=== PATIENT | female | born 1955 | race Caucasian/White ===

== ENCOUNTER 2024-03-15 17:50 | Emergency (ER) | payer MEDICARE, OTHER, SELFPAY ==
[2024-03-15] VITALS (10 sets, daily range): BP systolic 130–184; BP diastolic 64–79; PULSE 79–91; RESP 16–28; TEMP 36.6–37.1; O2SAT 92–98; BMI 28.5
--- NOTE | 2024-03-15 18:38 | EKG_ITS ---
[place] [id number] [place] [id number] Test Date: 2024-03-15 Pat Name: Laurence Perrin Department: [facility] Room: Gender: Female Data Security Administrator: SHERRY : 1955 Requested By: Order Number: [id number] Reading MD: Galen Hwang Measurements Intervals [place] Rate: 82 P: 43 PA: 162 QRS: -21 QRSD: 78 T: 34 QT: 374 QTc: 436 Interpretive Statements Normal sinus rhythm Inferior infarct , age undetermined Electronically Signed On 03-16-2024 8:32:52 PDT by Galen Hwang
[2024-03-15 21:12] LABS: Add Manual Diff / Slide Review NO; Basophils Absolute Auto 0 /uL (0-100); Basophils Percent Auto 0.3 % (0-2); Eosinophils Absolute Auto 100 /uL (0-450); Hemoglobin 14.1 g/dL (12.0-16.0); Lymphocytes Absolute Auto 1200 /uL (1100-4500); Lymphocytes Percent Auto 10.1 % (25-40); Mean Corpuscular HGB Conc 32.8 % (30-36); Mean Corpuscular Hemoglobin 27.4 PG (26-34); Mean Corpuscular Volume 83.5 fL (80-100); Monocytes Absolute Auto 1000 /uL (0-900); Monocytes Percent Auto 8.3 % (3-14); Neutrophils Absolute Auto 9500 /uL (1500-7000); Neutrophils Percent Auto 80.3 % (50-75); Platelet Count 253 X10^3/uL (150-400); Red Blood Cell Count 5.16 X10^6/uL (4.0-5.2); Red Cell Distribution Width 13.7 % (11.6-14.8); White Blood Cell Count 11.8 X10^3/uL (4.5-11.0)
[2024-03-15 21:28] LABS: Alanine Aminotransferase 20 IU/L (<35); Albumin 4.7 g/dL (3.5-5.0); Albumin Globulin Ratio 1.2 (1.0-2.8); Alkaline Phosphatase 50 U/L (38-126); Aspartate Aminotransferase 27 IU/L (14-36); Bilirubin Total 0.9 mg/dL (0.2-1.3); Blood Urea Nitrogen 13 mg/dL (7-17); Calcium 9.3 mg/dL (8.4-10.2); Carbon Dioxide 24 mmol/L (22-32); Chloride 100 mmol/L (98-107); Estimated Glomerular Filt Rate > 60 mL/min (>60); Globulin 3.9 g/dL (1.7-4.1); Glucose 120 mg/dL (80-110); HEMOLYSIS 21 (0-50); Lipase 82 U/L (23-300); Potassium 3.9 mmol/L (3.4-5.1); Sodium 135 mmol/L (137-145); Total Protein 8.6 g/dL (6.3-8.2)
--- NOTE | 2024-03-15 21:36 | ED.ABDPAIN ---
HPI - Abdominal Pain General Chief Complaint: Abdominal Pain Stated Complaint: lower abd pain, sent by [facility] Time Seen by Provider: 03/15/24 20:54 History of Present Illness HPI narrative: 68-year-old female with history of diverticulitis 1st diagnosed 5 years ago, two prior bouts, now with 7 days duration of waxing-waning left lower quadrant abdominal pain that feels somewhat similar. No dysuria or frequency of urination, no blood in urine. No history of known kidney stones. No flank area discomfort. No fevers or chills. No black or red stools. She recalls having allergy to ciprofloxacin, and got better on Keflex dose her last episode, does not recall any penicillin allergies. She denies chest pain shortness of breath. She denies headache, neck pain, photophobia symptoms. She has currently not taking any oral antibiotics. Related Data Previous Rx's Medication Instructions Recorded amoxicillin 875 mg-potassium 1 tab PO BID #20 tabs 03/15/24 clavulanate 125 mg tablet Allergies Allergy/AdvReac Type Severity Reaction Status Date / Time ciprofloxacin AdvReac Mild Rash Verified 03/15/24 17:19 Review of Systems Review of Systems Narrative: See HPI Patient History Social History Smoking Status: Never smoker Smoking Status: Never smoker alcohol intake frequency: holidays/special occasions only Substance Use Type: does not use Exam Narrative Exam Narrative: GENERAL: Well-developed patient, in mild distress. HEAD: Atraumatic. Normocephalic. EYES: Pupils equal round and reactive. Extraocular motions intact. No scleral icterus. No injection or drainage. ENT: Nose without bleeding, purulent drainage. Throat without erythema, tonsillar hypertrophy or exudate. Airway patent. NECK: Trachea midline. Non tender CARDIOVASCULAR: Regular rate and rhythm without murmurs, gallops, or rubs. RESPIRATORY: Clear to auscultation. Breath sounds equal bilaterally. No wheezes, rales, or rhonchi. GASTROINTESTINAL: Abdomen soft, non-tender, nondistended. EXTREMITIES: No edema or joint tenderness. BACK: Nontender without deformity or crepitance. No flank tenderness. NEURO: AOx3. Motor functions grossly nonfocal SKIN: No rash or erythema of visible areas Initial Vital Signs Initial Vital Signs: Vital Signs Temperature 98 F 03/15/24 18:31 Pulse Rate 79 03/15/24 18:31 Respiratory Rate 17 03/15/24 18:31 Blood Pressure 130/79 03/15/24 18:31 Pulse Oximetry 98 03/15/24 18:31 Oxygen Delivery Method Room Air 03/15/24 18:31 Course Orders Ordered: ED Orders 03/15/24 18:38 EKG-12 Lead Stat 03/15/24 20:45 Complete Blood Count AUTO DIFF Stat Comprehensive Metabolic Panel Stat Lipase Stat 03/15/24 21:48 CT abdomen pelvis w con Stat Discontinued Medications Amoxicillin/Clavulanate Potassium (Amoxicillin/Clav 875/125 Mg) 1 tab PO NOW ONE Stop: 03/15/24 23:40 Last Admin: 03/15/24 23:48 Dose: 1 tab Documented By: ANÍBAL Sodium Chloride (Normal Saline 0.9%) 1,000 mls @ 500 mls/hr IV BOLUS ONE Stop: 03/15/24 23:48 Last Infusion: 03/15/24 23:58 Dose: Infused Documented By: Admin: 03/15/24 22:08 Dose: 500 mls/hr Documented By: ANÍBAL Piperacillin Sod/Tazobactam (Sod 4.5 gm/ Sodium Chloride) 100 mls @ 200 mls/hr IV NOW ONE Stop: 03/15/24 23:39 Last Admin: 03/15/24 23:43 Dose: Not Given Documented By: ANÍBAL Ondansetron HCl (Ondansetron 4 Mg/2 Ml Inj) 4 mg IV NOW PRN PRN Reason: Nausea And Vomiting Ondansetron HCl (Ondansetron 4 Mg Odt) 4 mg PO NOW PRN PRN Reason: Nausea And Vomiting Vital Signs Vital signs: Vital Signs - 8 hr 03/15/24 18:31 03/15/24 21:16 03/15/24 21:33 Temperature 98 F Pulse Rate 79 82 80 Respiratory Rate 17 21 Blood Pressure 130/79 Pulse Oximetry 98 98 92 Oxygen Delivery Method Room Air 03/15/24 21:34 03/15/24 21:34 03/15/24 22:06 Temperature Pulse Rate 80 91 H Respiratory Rate 16 Blood Pressure 152/64 H Pulse Oximetry 97 98 Oxygen Delivery Method 03/15/24 22:13 03/15/24 22:13 03/15/24 22:30 Temperature 98.8 F Pulse Rate 83 Respiratory Rate 19 Blood Pressure 144/65 H 143/67 H Pulse Oximetry 98 Oxygen Delivery Method Room Air 03/15/24 22:30 03/15/24 23:00 03/15/24 23:00 Temperature Pulse Rate 82 79 Respiratory Rate 28 H Blood Pressure 137/64 Pulse Oximetry 98 98 Oxygen Delivery Method Room Air 03/15/24 23:30 03/15/24 23:31 03/15/24 23:31 Temperature Pulse Rate 89 87 Respiratory Rate 28 H 24 Blood Pressure 184/74 H Pulse Oximetry 97 96 Oxygen Delivery Method MDM - Abdominal Pain Lab Data Attestation: I reviewed the patient's lab results. Lab results narrative: White blood cell count 50225, hemoglobin 14. CMP unremarkable. 03/15/24 20:45 03/15/24 20:45 Labs: Lab Results 03/15/24 Range/Units 20:45 WBC 11.8 H (4.5-11.0) X10^3/uL RBC 5.16 (4.0-5.2) X10^6/uL Hgb 14.1 (12.0-16.0) g/dL Hct 43.0 (36-46) % MCV 83.5 (80-100) fL MCH 27.4 (26-34) PG MCHC 32.8 (30-36) % RDW 13.7 (11.6-14.8) % Plt Count 253 (150-400) X10^3/uL Neut % (Auto) 80.3 H (50-75) % Lymph % (Auto) 10.1 L (25-40) % [place] % (Auto) 8.3 (3-14) % Eos % (Auto) 1.0 L (2-4) % Baso % (Auto) 0.3 (0-2) % Neut # (Auto) 9500 H (8061-0161) /uL Lymph # (Auto) 1200 (0682-2821) /uL [place] # (Auto) 1000 H (0-900) /uL Eos # (Auto) 100 (0-450) /uL Baso # (Auto) 0 (0-100) /uL Sodium 135 L (137-145) mmol/L Potassium 3.9 (3.4-5.1) mmol/L Chloride 100 (98-107) mmol/L Carbon Dioxide 24 (22-32) mmol/L BUN 13 (7-17) mg/dL Creatinine 0.81 (0.52-1.04) mg/dL Estimated GFR > 60 (>60) mL/min BUN/Creatinine Ratio 16.0 (6-22) Glucose 120 H (80-110) mg/dL Calcium 9.3 (8.4-10.2) mg/dL Total Bilirubin 0.9 (0.2-1.3) mg/dL AST 27 (14-36) IU/L ALT 20 (<35) IU/L Alkaline Phosphatase 50 (38-126) U/L Total Protein 8.6 H (6.3-8.2) g/dL Albumin 4.7 (3.5-5.0) g/dL Globulin 3.9 (1.7-4.1) g/dL Albumin/Globulin Ratio 1.2 (1.0-2.8) Lipase 82 (23-300) U/L Point of care testing: Urine Dip Bedside Urine Glucose Negative Bedside Urine Bilirubin - Negative Bedside Urine Ketone ++ 40 Urine Specific [place] 1.025 Bedside Urine Occult Blood - Negative Bedside Urine pH 5.5 Bedside Urine Protein - Negative Bedside Urine Urobilinogen - Negative Bedside Urine Nitrite - Negative Bedside Urine Leukocytes - Negative Esterase Imaging Data CT scan - abdomen/pelvis: Radiologist's Impression: [place] [id number] CT Scan Report Signed Patient: Laurence Perrin MR#: [id number] : 1955 Acct:[id number] Age/Sex: 68 / F Date of Service: 03/15/24 Loc: ED Accession Number: [id number] Procedure: CT abdomen pelvis w con Ordering Provider: Vahe Sánchez MD PROCEDURE: CT ABDOMEN PELVIS W CON INDICATIONS: LLQ abd pain, hx diverticulitis TECHNIQUE: After the administration of intravenous contrast, axial sections acquired from the lung bases to the pubic symphysis. Coronal and sagittal reformats were performed. For radiation dose reduction, the following was used: automated exposure control, adjustment of mA and/or kV according to patient size. COMPARISON: None. FINDINGS: Image quality: Diagnostic. Lower Chest: 4 mm nodule is seen at the anterior left lower lobe (3/22). 3 mm nodule is seen in the right middle lobe anteriorly (3/12). Additional 4 mm nodule in the anterior right lower lobe (3/14). ABDOMEN: Liver: No solid mass. Gallbladder: No radiopaque gallstones or wall thickening. Biliary ducts: No biliary dilation. Pancreas: No ductal dilation. Spleen: Size is within normal limits. Adrenal Glands: No adrenal nodules. Kidneys and Ureters: No hydronephrosis. No solid mass. No complex renal cystic lesion which requires follow up. Stomach and Bowel: Moderate hiatal hernia. Multiple diverticula are seen in the sigmoid colon. There is bowel wall thickening and inflammatory fat stranding surrounding a diverticulum in the distal sigmoid colon. Edema is seen extending to the left adnexa. No pneumoperitoneum or well-defined fluid collection is seen. No signs of bowel obstruction. Normal appendix. Peritoneum: No abnormal intraperitoneal fluid. No free air. Ventral Wall: Small fat containing periumbilical hernia. Abdominal Nodes: No retroperitoneal or mesenteric adenopathy by size criteria. Vessels: Aorta and inferior vena cava are normal in size. PELVIS: Pelvic Organs: Retroverted uterus. Prominent vascularity is seen in the left adnexa, which can be seen in the setting of pelvic congestion syndrome. Bladder: No bladder wall thickening, accounting for underdistention. Pelvic Nodes: No enlarged lymph nodes. Miscellaneous: No inguinal hernias are seen. Bones: No aggressive osseous abnormality. IMPRESSION: 1. Acute sigmoid colon diverticulitis with prominent pericolonic edema but no clearly defined fluid collection or pneumoperitoneum. 2. Moderate hiatal hernia. 3. Small pulmonary nodules in the lung bases. Optional CT of the chest could be performed in 12 months if the patient is at a high risk for pulmonary malignancy. Approved by: Beny Perea M.D. on 03/15/2024 at 22:44 ECG Data Attestation: I personally reviewed and interpreted this ECG as follows: Interpretation: Normal sinus rhythm with rate of 82, no obvious ST segment elevation or depression changes. T-wave flattening lead 3, but upright in contiguous inferior leads 2 and AVF. SD 162, QRS 78, QTC 436. MDM Narrative Medical decision making narrative: 68-year-old female with history of diverticulitis, one-week duration waxing waning left lower quadrant abdominal pain. Afebrile, sirs screen negative. Some tenderness left lower quadrant. No guarding or rebound tenderness. Nondistended. Labs pending. Anticipate imaging, with IV contrast if GFR favorable. She declines pain medications when offered for now. Keep NPO. CT shows sigmoid diverticulitis, no description of perforation or abscess or obstruction. Patient not having bleeding symptoms. We will start antibiotics, consider IV although patient needs to apparently return her rental car, p.o. Augmentin dose now, prescription sent to her pharmacy at [place] we will she will be located tomorrow. Advised to take [id number] analgesics as needed. Recheck symptoms if abdominal pain is not improving in the next few days on oral antibiotics. Return precautions discussed. Discharge Plan Departure Patient Disposition: Home Clinical Impression: Diverticulitis Instructions: Diverticulitis Activity Restrictions/Additional Instructions: Left lower quadrant abdominal pain, history of diverticulitis, some tenderness on examination. CT scan does show sigmoid diverticulitis, at this time there was no description of any abscess or perforation, or any bowel obstruction. You are not having GI bleeding symptoms at this time. First dose of oral antibiotic Augmentin was given, prescription sent to your pharmacy for 10 day course. Recheck symptoms with the regular doctor in 2 or 3 days. Consider use of [id number] Tylenol and or Motrin for pain control as needed. Drink plenty of fluids. Return to this/nearest emergency department for any change worsening symptoms or any concerns prior Prescriptions: New amoxicillin-pot clavulanate 875-125 mg tablet 1 tab PO BID Qty: 20 0RF Referrals: Miscellaneous,DoctorMD [Primary Care Provider] - Stand Alone Forms: Patient Portal/API
--- NOTE | 2024-03-15 21:48 | DI.CT.S_ITS ---
PROCEDURE: CT ABDOMEN PELVIS W CON INDICATIONS: LLQ abd pain, hx diverticulitis TECHNIQUE: After the administration of intravenous contrast, axial sections acquired from the lung bases to the pubic symphysis. Coronal and sagittal reformats were performed. For radiation dose reduction, the following was used: automated exposure control, adjustment of mA and/or kV according to patient size. COMPARISON: None. FINDINGS: Image quality: Diagnostic. Lower Chest: 4 mm nodule is seen at the anterior left lower lobe (3/22). 3 mm nodule is seen in the right middle lobe anteriorly (3/12). Additional 4 mm nodule in the anterior right lower lobe (3/14). ABDOMEN: Liver: No solid mass. Gallbladder: No radiopaque gallstones or wall thickening. Biliary ducts: No biliary dilation. Pancreas: No ductal dilation. Spleen: Size is within normal limits. Adrenal Glands: No adrenal nodules. Kidneys and Ureters: No hydronephrosis. No solid mass. No complex renal cystic lesion which requires follow up. Stomach and Bowel: Moderate hiatal hernia. Multiple diverticula are seen in the sigmoid colon. There is bowel wall thickening and inflammatory fat stranding surrounding a diverticulum in the distal sigmoid colon. Edema is seen extending to the left adnexa. No pneumoperitoneum or well-defined fluid collection is seen. No signs of bowel obstruction. Normal appendix. Peritoneum: No abnormal intraperitoneal fluid. No free air. Ventral Wall: Small fat containing periumbilical hernia. Abdominal Nodes: No retroperitoneal or mesenteric adenopathy by size criteria. Vessels: Aorta and inferior vena cava are normal in size. PELVIS: Pelvic Organs: Retroverted uterus. Prominent vascularity is seen in the left adnexa, which can be seen in the setting of pelvic congestion syndrome. Bladder: No bladder wall thickening, accounting for underdistention. Pelvic Nodes: No enlarged lymph nodes. Miscellaneous: No inguinal hernias are seen. Bones: No aggressive osseous abnormality. IMPRESSION: 1. Acute sigmoid colon diverticulitis with prominent pericolonic edema but no clearly defined fluid collection or pneumoperitoneum. 2. Moderate hiatal hernia. 3. Small pulmonary nodules in the lung bases. Optional CT of the chest could be performed in 12 months if the patient is at a high risk for pulmonary malignancy. Approved by: Beny Perea M.D. on 03/15/2024 at 22:44
[2024-03-15] MEDS: SODIUM CHLORIDE 0.9% 1,000 ML 500 ML IV (22:08)
[2024-03-15] MEDS: AMOXICILLIN/CLAV 875/125 MG 1 TAB PO (23:48)
== END 2024-03-15 23:55 | disposition home or self-care (01) ==
PROVIDERS: Emergency Provider Emergency Medicine
DX: K57.32 Diverticulitis of large intestine without perforation or abscess without bleeding (principal); K44.9 Diaphragmatic hernia without obstruction or gangrene; R91.8 Other nonspecific abnormal finding of lung field; R79.89 Other specified abnormal findings of blood chemistry
CPT/HCPCS: 36415; 74177; 80053; 81003; 83690; 85025; 93005; 96360; 96361; 99284; Q9967